=== PATIENT | female | born 1935 | race Caucasian/White ===

== ENCOUNTER → 2018-08-04 | Outpatient (CLI) | payer MEDICARE, OTHER ==
[~2018-08-04] MED LIST: AMLODIPINE BESYL5 MG PO; ASCORBIC ACID500 MG PO; ASPIR 8181 MG PO; ASPIRIN81 M3 PO; ATORVASTATIN CA10 MG PO; CALTRATE 600 W1 EACH PO; CHOLECALCIFEROL1 GM PO; DIOVAN HCT 3201 EAC1 PO; FISH OIL 1,2001 EAC5 PO; FISH OIL 1,2001 EACH PO; FLAGYL250 MG PO; FLECAINIDE ACET50 MG PO; IOPAMIDOL 370 MG/ML 200 ML INFUS..BTL INJ ONE; LEVAQUIN500 MG PO; NEXIUM40 MG PO; PROAIR HFA INH8.5 GM INH; PROMETHAZINE V237 ML PO; SODIUM CHLORIDE 0.9% 250ML 250 ML ONE; SODIUM CHLORIDE 0.9% 500ML 500 ML ONE; SODIUM CHLORIDE 0.9% 50ML 50 ML ONE; VITAMIN B; VITAMIN B-121000 MCG PO; VITAMIN E400 UNI1 PO; WOMEN'S DAILY1 EAC1 PO; Z.0.LIPITOR10 MG PO; Z.0.NEXIUM40 MG PO; Z.0.VITAMIN C500 M1 PO; Z.1.DIOVAN HCT 3201 PO; Z.4.VITAMIN E400 UNI PO; [UNRECOGNIZED DRUG - CODE]; [UNRECOGNIZED DRUG - OTHER] PO; [UNRECOGNIZED DRUG - OTHER] PO
--- NOTE | 2018-08-04 09:49 | Diagnostic Imaging Report ---
PROCEDURE:CT PELVIS WITH CONTRAST COMPARISON:None. INDICATIONS:RIGHT GROIN PAIN TECHNIQUE:Multidetector imaging of the pelvis was performed from the level of the umbilicus to below the pubic symphysis post IV administration of 100 cc Isovue 370. Water was administered orally for GI contrast. Coronal and sagittal multiplanar reformations were obtained. Dose sparing technology was utilized. DLP: 427.70 mGy-cm FINDINGS: The small bowel is unremarkable. Sigmoid colon diverticula are present. There is no evidence of adenopathy or free fluid. The bladder is normal in appearance. There is no evidence of free fluid or adenopathy. There is no evidence of a hernia. Multiple pelvic phleboliths. Phleboliths within the right ovarian vein also noted. Vascular structures are normal. Left calcified gluteal injection granuloma. Bones and soft tissues: Degenerative changes are present in the lumbar spine with facet arthrosis. There is disc space narrowing at L4-L5 with vacuum phenomena in the disc. There is severe joint space narrowing in the right hip with juxta-articular subchondral cyst formation in the acetabulum as well as the femoral head. CONCLUSION: 1. 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 2. 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 Mehran Sun D.O. Dictated by: Mehran Sun D.O. on 08/04/2018 at 9:58 Electronically approved by: Mehran Sun D.O. on 08/04/2018 at 9:58
== END ==
LOC: CT 07:38
PROVIDERS: ATTEND Family Medicine
DX: R10.31 Right lower quadrant pain (principal)
CPT/HCPCS: 36415; 72193; 82565; 84520; 96360; J7040; J7050; Q9967

== ENCOUNTER → 2018-09-01 | Outpatient (CLI) | payer MEDICARE ==
[~2018-09-01] MED LIST changes: -IOPAMIDOL 370 MG/ML 200 ML INFUS..BTL INJ ONE; -SODIUM CHLORIDE 0.9% 250ML 250 ML ONE; -SODIUM CHLORIDE 0.9% 500ML 500 ML ONE; -SODIUM CHLORIDE 0.9% 50ML 50 ML ONE
--- NOTE | 2018-09-01 12:37 | Diagnostic Imaging Report ---
EXAMINATION: CHEST 2 VIEWS INDICATION: Cough. COMPARISON: Chest radiograph 02/09/2012. Report from chest radiograph on 01/22/2015, although images are not available for review. FINDINGS: TUBES and LINES: None. LUNGS: Lungs are well inflated. Mild patchy bibasilar opacity. No evidence of lobar consolidation or pulmonary edema. PLEURA: No pleural effusion or pneumothorax. HEART AND MEDIASTINUM: There is prominence of the bilateral jessy. Cardiac silhouette is otherwise unremarkable. BONES AND SOFT TISSUES: No acute osseous lesion. Soft tissues are unremarkable. UPPER ABDOMEN: No free air under the diaphragm. IMPRESSION: Prominence of the bilateral jessy. This could be secondary to enlarged pulmonary arteries or lymphadenopathy. CT chest may be considered for further evaluation. Mild patchy left basilar opacity, likely atelectasis. No specific evidence of pneumonia. Signed by: Dr. Bev Marti MD on 09/01/2018 12:33 PM
== END ==
LOC: RAD 10:33
PROVIDERS: ATTEND Family Medicine
DX: R05 Cough (principal)
CPT/HCPCS: 71046

== ENCOUNTER → 2022-02-17 | Outpatient (CLI) | payer MEDICARE | LOC: RAD 13:31 | DX: M54.50 Low back pain, unspecified (principal); M47.816 Spondylosis without myelopathy or radiculopathy, lumbar region; M85.88 Other specified disorders of bone density and structure, other site | CPT/HCPCS: 72110 ==